=== PATIENT | male | born 1960 | race Caucasian/White ===

== ENCOUNTER 2018-03-30 11:51 | Emergency (ER) | payer MEDICARE ==
[~2018-03-30] VITALS: Ht 170.2 cm; Wt 81.7 kg
[2018-03-30 13:07] VITALS: BP 147/88
== END 2018-03-30 13:09 | disposition home or self-care (01) ==
LOC: M.ERS 11:51
DX: J02.9 Acute pharyngitis, unspecified (principal); F17.210 Nicotine dependence, cigarettes, uncomplicated